=== PATIENT | male | born 1960 | race Caucasian/White ===

== ENCOUNTER → 2019-04-13 | Outpatient (CLI) | payer BC ==
[~2019-04-13] MED LIST: HYDROCHLOROTHIA25 M1 PO; LISINOPRIL5 MG PO; LOPRESSOR25 MG PO
== END | disposition home or self-care (01) ==
LOC: RAD 14:31
DX: J40 Bronchitis, not specified as acute or chronic (principal)

== ENCOUNTER → 2019-12-06 | Outpatient (CLI) | payer BC | END | disposition home or self-care (01) | LOC: COVID19 09:05 | DX: Z20.828 Contact with and (suspected) exposure to other viral communicable diseases (principal) ==

== ENCOUNTER → 2021-12-10 | Day surgery (SDC) | payer OTHER ==
[~2021-12-10] VITALS: Ht 185.4 cm; Wt 113.4 kg
[~2021-12-10] MED LIST changes: +CENTRUM SILVER1 EAC2 PO; +CIALIS10 MG PO; +K-TAB20 MEQ PO; +LIPITOR20 MG PO; +METFORMIN HYDR500 MG PO
[2021-12-10 09:44] VITALS: BP 119/61
[2021-12-10 09:58] VITALS: BP 110/65
[2021-12-10 10:12] VITALS: BP 104/69
== END | disposition home or self-care (01) ==
LOC: SDC 12-07 12:30
PROVIDERS: ATTEND Surgery
DX: Z12.11 Encounter for screening for malignant neoplasm of colon (principal); K63.5 Polyp of colon; I10 Essential (primary) hypertension; E11.9 Type 2 diabetes mellitus without complications; I48.91 Unspecified atrial fibrillation; F17.210 Nicotine dependence, cigarettes, uncomplicated; Z79.899 Other long term (current) drug therapy